=== PATIENT | male | born 1985 | race Caucasian/White ===

== ENCOUNTER 2019-01-15 14:24 | Emergency (ER) | payer OTHER ==
[~2019-01-15] VITALS: Ht 180.3 cm; Wt 83.9 kg
[2019-01-15 14:47] LABS: ABSOLUTE BASOPHILS 0.1 thou/uL (0.0-0.2); ABSOLUTE EOSINOPHILS 0.1 thou/uL (0.0-0.7); ABSOLUTE LYMPHOCYTES 1.7 thou/uL (0.8-5.3); ABSOLUTE MONOCYTES 0.6 thou/uL (0.0-1.2); ABSOLUTE NEUTROPHILS 4.5 thou/uL (1.6-8.1); EOSINOPHILS 1.9 %; HEMATOCRIT 43.9 % (42.0-52.0); HEMOGLOBIN 15.1 gm/dL (14.0-18.0); LYMPHOCYTES 24.6 %; MCH 29.2 pg (26.0-34.0); MCHC 34.5 g/dL (28.0-37.0); MCV 84.8 fL (80.0-100.0); MONOCYTES 7.9 %; MPV 6.8 fl. (7.2-11.1); NUCLEATED RBCS 0 /100WBC; PLATELET COUNT* 553 thou/uL (150-400); POLYS 64.6 %; RBC 5.18 mil/uL (4.50-6.00)
[2019-01-15 15:06] LABS: ALBUMIN 3.8 g/dL (3.4-5.0); ALKALINE PHOSPHATASE 58 U/L (46-116); ANION GAP 10 mmol/L (7-16); BUN 11 mg/dL (7-18); CALCIUM 8.7 mg/dL (8.5-10.1); CHLORIDE 106 mmol/L (98-107); CO2 26 mmol/L (21-32); CREATININE 1.1 mg/dL (0.6-1.3); GLUCOSE 111 mg/dL (70-99); POTASSIUM 4.1 mmol/L (3.5-5.1); SGOT 10 U/L (15-37); SGPT 19 U/L (30-65); SODIUM 142 mmol/L (136-145); TOTAL BILIRUBIN 0.5 mg/dL (<0.1-1.0); TROPONIN-I LEVEL <0.06 ng/mL (<0.06)
[2019-01-15 15:57] LABS: INFLUENZA A ANTIGEN None Detected (None Detect); INFLUENZA B ANTIGEN None Detected (None Detect)
[2019-01-15 18:16] VITALS: BP 125/70
--- NOTE | 2019-01-16 12:38 | EKG ---
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 01/16/19 1238 1426 1426 Trae Cui MD, FACC /EPI
== END 2019-01-15 18:17 | disposition home or self-care (01) ==
LOC: M.ERS 14:24
PROVIDERS: Nurse Practitioner Family
DX: R07.89 Other chest pain (principal); R20.2 Paresthesia of skin